=== PATIENT | female | born 1980 | race Caucasian/White ===

== ENCOUNTER 2024-08-29 02:24 | Inpatient (IN) ==
[2024-08-29] MEDS: OXYTOCIN 10 UNITS/ML 10ML VIAL IM ONE (03:28)
[2024-08-29] MEDS: LIDOCAINE 1% LOCAL 20 ML VIAL ONE (03:30)
[2024-08-29] MEDS ORDERED: LACTATED RINGER'S 1,000 ML IV PRN (03:37)
[2024-08-29] MEDS ORDERED: OXYTOCIN 30 UNITS/NSS 30 UNITS/500 ML BAG IV PRN ×2 (03:37→03:42)
[2024-08-29] MEDS ORDERED: LIDOCAINE 1% LOCAL 20 ML VIAL INFIL PRN (03:37)
--- NOTE | 2024-08-29 03:40 | Delivery Summary ---
Vaginal Delivery Summary Date of Service August 29, 2024 Vaginal Delivery Summary and 1st Degree LAC Spontaneous vaginal delivery the patient arrived in active labor at 9 cm anterior lip on arrival attempted to get an IV but unable to do so patient then progressed to push and with artificial rupture membranes pushed a baby in direct occiput posterior position after delivery of the head fluid was clear no nuchal cord gentle traction on the baby no excessive force used live vigorous female infant cord clamped baby placed on mother's chest cord blood obtained placenta removed with traction IV Pitocin was not available so IM Pitocin was used there is a small first-degree tear local anesthetic injected and repaired with a [id number] 3-0 Vicryl sponge and instrument counts correct QBL 100 mL [facility] Vaginal Delivery Charge Delivery Type Details: and 1st Degree LAC
[2024-08-29] MEDS ORDERED: HYDROCORTISONE ACETATE 25 MG SUPP PR PRN (03:42)
[2024-08-29] MEDS ORDERED: DIPHTHER/TETAN/PERTUS Vaccine (Tdap, Adol/Adult) 0.5mL IM ONE (03:42)
[2024-08-29 04:10] LABS: Hematocrit (blood only) 40.6 % (37.0-47.0); Hemoglobin 13.6 g/dl (12.0-16.0); Mean Corpuscular Hemoglobin 31.9 pg (25.0-34.0); Mean Corpuscular Hgb Conc 33.5 g/dL (32.0-36.0); Mean Corpuscular Volume 95.1 fL (80.0-100.0); Mean Platelet Volume 9.5 fL (9.4-12.4); Platelet Count 227 K/uL (130-400); RDW Coefficient of Variation 12.8 % (11.5-14.5); RDW Standard Deviation 44.6 fL (36.4-46.3); Red Blood Count 4.27 M/uL (4.20-5.40); White Blood Count 19.45 K/ul (4.8-10.8)
[2024-08-29] MEDS: IBUPROFEN 600 MG TAB PO PRN (06:17)
[2024-08-29] MEDS: BENZOCAINE 20% SPRY 85 APPLN/85 GM CAN EXT PRN (06:17)
[2024-08-29] MEDS ORDERED: OXYTOCIN 10 UNITS/ML VIAL ONE (08:33)
[2024-08-29] MEDS: PRENATAL VITAMIN 1 TAB PO SCH (08:43)
[2024-08-29] MEDS: DOCUSATE SODIUM 100 MG CAP PO SCH (08:43)
[2024-08-29] MEDS: ACETAMINOPHEN 325 MG TAB PO PRN (09:19)
[2024-08-29 20:29] VITALS: RESP 18
--- NOTE | 2024-08-30 06:28 | Obstetrical Progress Note ---
Date of Service August 30, 2024 Assessment & Plan (1) Encounter for assessment: Plan: Patient is PPD 1 s/p and doing well - Eating well, voiding well, ambulating well - vitals reviewed and within normal limits - pain well controlled with analgesics - OOB, ambulation, diet progression as tolerated - Blood type: O+, GBS neg, rubella immune - Plan to discharge today - After discharge, 6 week follow up with OB Admission and Anticipated Discharge Date Admission Date: August 29, 2024 Supervising Physician Co-Signing Physician Notes Resident Physician Supervision Note: I interviewed and examined the patient. Discussed with Dr. Juan and agree with findings and plan as documented in the note. Any exceptions or clarifications are listed here: D/C today Documented By: Dimple Robles MD, FACOG Subjective 43 yo post- day 1 s/p Ambulation: ambulating normally Voiding: no voiding problems Passing Gas:: Yes Diet Tolerance:: regular diet Lochia:: Small Feeding Type:: breast feeding Current Pain Level:3-4/10 Resting comfortably this AM in NAD. Denies MARTEL, CP, SOB, N/V/D, LE pain/swelling. Physical Exam Physical Exam: General: patient resting comfortably, NAD, non-toxic in appearance, answers questions appropriately. Skin: warm, dry, intact HEENT: NC/AT, anicteric sclera, conjunctiva without injection, moist mucus membranes. Heart: +S1/S2, regular, no m/r/g Lungs: equal air entry bilaterally, no rales/rhonchi/wheezes Abd: +BS, soft, NT/ND, uterine fundus firm at umbilicus Ext: warm, no clubbing/cyanosis or edema, Tremayne's neg. Neuro: nonfocal, speech intact, no facial droop, moving all extremities. Results & Data Vital Signs (Past 12 Hours) Vital Signs Temp Pulse Resp BP Pulse Ox O2 Del Method 08/29/24 23:35 36.6 C 72 18 125/82 97 Room Air 08/29/24 19:20 36.9 C 88 18 123/87 96 Room Air Resident Activity Tracking Resident Involvement: Resident Care Provided Care Provided: OB Delivery (1) Encounter for assessment visit type: exam and care immediately after delivery Qualified Code(s): Z39.0 - Encounter for care and examination of mother immediately after delivery
[2024-08-30 08:08] VITALS: BP 135/83; TEMP 97.3; O2SAT 96
[2024-08-30 08:26] VITALS: PULSE 71
[2024-08-30] MEDS ORDERED: bisacodyL 5 MG TABEC PO SCH (20:00)
[2024-08-31] MEDS ORDERED: bisacodyL 10 MG SUPP PR PRN (03:42)
== END 2024-08-30 10:50 | disposition home or self-care (01) | DRG 807 ==
LOC: OPB 02:24 → 4S1 02:26 → 4E2 06:44